=== PATIENT | female | born 1970 | race Caucasian/White ===

== ENCOUNTER 2018-03-27 02:33 | Emergency (ER) | payer BC ==
[~2018-03-27] VITALS: Ht 167.6 cm; Wt 62.1 kg
[2018-03-27] MEDS ORDERED: DIAZEPAM 10 MG TABLET ONE (02:48)
[2018-03-27] MEDS ORDERED: OLANZAPINE 5 MG TABLET ONE ×2 (02:49→04:14)
[2018-03-27] MEDS ORDERED: ONDANSETRON 4 MG TAB.RAPDIS ONE (02:49)
[2018-03-27] MEDS ORDERED: ONDANSETRON 4 MG TAB.RAPDIS SL ONE (03:00)
[2018-03-27] MEDS ORDERED: DIAZEPAM 10 MG TABLET PO ONE ×2 (03:00→04:30)
[2018-03-27] MEDS ORDERED: OLANZAPINE 5 MG TABLET PO ONE ×2 (03:00→04:30)
[2018-03-27] MEDS ORDERED: DIAZEPAM 5 MG TABLET ONE (04:13)
[2018-03-27 05:47] VITALS: BP 111/78
== END 2018-03-27 05:48 | disposition home or self-care (01) ==
LOC: ER 02:40
DX: F41.9 Anxiety disorder, unspecified (principal)
CPT/HCPCS: Q0162